=== PATIENT | male | born 1955 | race Caucasian/White ===

== ENCOUNTER 2023-05-03 14:20 | Inpatient (IN) | payer MEDICARE ==
[2023-05-03 15:43] LABS: #Eosinphils 0.2 10x3/uL (0.0-0.5); #Monocytes 1.6 10x3/uL (0.0-1.1); %Basophils 0.4 % (0.0-2.0); %Eosinophils 2.2 % (0.0-6.0); %Lymphocytes 9.8 % (18.0-47.0); %Monocytes 15.9 % (0.0-10.0); %Neutrophils 71.4 % (40.0-75.0); Hematocrit 46.5 % (38.8-50.0); Hemoglobin 15.9 g/dL (13.5-17.5); Mean Corpuscular HGB CONC 34.2 g/dL (32.0-36.0); Mean Corpuscular Hemoglobin 33.2 pg (27.0-33.0); Mean Corpuscular Volume 97.1 fl (81.2-95.1); Mean Platelet Volume 9.6 fl (7.4-10.4); Platelet Count 314 10x3/uL (150-450); RBC Distribution Width 13.9 % (11.5-14.5); Red Blood Cell (RBC) Count 4.79 10x6/uL (4.32-5.72); White Blood Cell (WBC) Count 9.9 10x3/uL (3.5-10.5)
[2023-05-03 15:57] LABS: ALT (SGPT) 13 U/L (8-55); AST (SGOT) 18 U/L (5-34); Albumin 3.8 g/dL (3.4-4.8); Alkaline Phosphatase 75 U/L (40-110); Anion Gap 16 mmol/L (10-20); BUN (Urea Nitrogen) 28 mg/dL (8.4-25.7); Bilirubin, Total 1.5 mg/dL (0.2-1.2); Calc. Creatinine Clearance 0 mL/min (70-130); Calcium 9.3 mg/dL (7.8-10.44); Carbon Dioxide 22 mmol/L (23-31); Chloride 104 mmol/L (98-107); Estimated GFR 45; Globulin 3.4 g/dL (2.4-3.5); Glucose 124 mg/dL (80-115); Potassium 4.5 mmol/L (3.5-5.1); Protein, Total 7.2 g/dL (5.8-8.1); Sodium 137 mmol/L (136-145)
[2023-05-03 16:00] LABS: Troponin I 0.011 ng/mL (< 0.028)
[2023-05-03] MEDS ORDERED: cefTRIAXone (ROCEPHIN) 2 GM VIAL ONE (17:16)
[2023-05-03 18:38] LABS: Bilirubin Neg (Negative); Blood, Urine 10 (Negative); Clarity Clear (Clear); Glucose, Urine (Dipstick) Normal (Negative); Ketone, Urine Negative (Negative); Leukocyte 25 (Negative); Nitrite Negative (Negative); Protein, Urine (Dipstick) 30 mg/dl (Neg-Trace)
[2023-05-03] MEDS ORDERED: Sodium Chloride 0.9% 1,000 ML IV SCH (18:45)
[2023-05-03 18:47] LABS: Bacteria/HPF 1+ HPF (None Seen); CAUTI Indications for Culture Pelvic or flank pain; Mucous/LPF 1+ LPF (<2+); RBC/HPF 0-3 HPF (0-3); Squamous Epithelial 0-3 HPF (0-3); WBC/HPF 0-3 HPF (0-3)
[2023-05-03 18:48] LABS: Urine Culture Reflex No No
[2023-05-03] MEDS ORDERED: Famotidine 20 MG TAB ONE (20:48)
[2023-05-03] MEDS: Famotidine 20 MG TAB PO SCH (20:50)
[2023-05-03 22:48] VITALS: BMI 37.3
[2023-05-03] MEDS: Acetaminophen 325 MG TAB PO PRN (23:42)
[2023-05-04 06:02] LABS: ALT (SGPT) 11 U/L (8-55); AST (SGOT) 17 U/L (5-34); Albumin 3.2 g/dL (3.4-4.8); Alkaline Phosphatase 63 U/L (40-110); Anion Gap 12 mmol/L (10-20); BUN (Urea Nitrogen) 19 mg/dL (8.4-25.7); Bilirubin, Total 1.4 mg/dL (0.2-1.2); Calc. Creatinine Clearance 129 mL/min (70-130); Calcium 9.2 mg/dL (7.8-10.44); Carbon Dioxide 21 mmol/L (23-31); Chloride 108 mmol/L (98-107); Estimated GFR 85; Globulin 3.5 g/dL (2.4-3.5); Glucose 102 mg/dL (80-115); Potassium 4.1 mmol/L (3.5-5.1); Protein, Total 6.7 g/dL (5.8-8.1); Sodium 137 mmol/L (136-145)
[2023-05-04] MEDS: Famotidine 20 MG TAB PO SCH ×2 (10:00→21:21)
[2023-05-04] MEDS: Acetaminophen 325 MG TAB PO PRN ×2 (12:29→21:27)
[2023-05-04] MEDS ORDERED: VANCOMYCIN 2 GRAM/400 ML BAG 2 GM in Premix 1 BAG IVPB SCH (13:30)
[2023-05-04] MEDS: cefTRIAXone\\ROCEPHIN 2 GM in Sodium Chloride 0.9% 100 ML IVPB SCH (17:33)
[2023-05-05] MEDS: Vancomycin 1.5 GRAM/300 ML BAG 1.5 GM in Premix 1 BAG IVPB SCH ×2 (02:06→14:00)
[2023-05-05] MEDS: Acetaminophen 325 MG TAB PO PRN ×2 (02:07→20:37)
[2023-05-05 06:13] LABS: #Basophils 0.1 10x3/uL (0.0-0.2); #Eosinphils 0.2 10x3/uL (0.0-0.5); #Monocytes 2.4 10x3/uL (0.0-1.1); #Neutrophils 9.3 10x3/uL (1.5-8.4); %Basophils 0.6 % (0.0-2.0); %Eosinophils 1.4 % (0.0-6.0); %Lymphocytes 10.8 % (18.0-47.0); %Monocytes 17.7 % (0.0-10.0); %Neutrophils 69.1 % (40.0-75.0); Hematocrit 41.2 % (38.8-50.0); Hemoglobin 14.4 g/dL (13.5-17.5); Mean Corpuscular Volume 94.5 fl (81.2-95.1); Platelet Count 307 10x3/uL (150-450); RBC Distribution Width 13.5 % (11.5-14.5); Red Blood Cell (RBC) Count 4.36 10x6/uL (4.32-5.72); White Blood Cell (WBC) Count 13.5 10x3/uL (3.5-10.5)
[2023-05-05 06:23] LABS: Anion Gap 14 mmol/L (10-20); BUN (Urea Nitrogen) 14 mg/dL (8.4-25.7); Calc. Creatinine Clearance 141 mL/min (70-130); Calcium 9.1 mg/dL (7.8-10.44); Carbon Dioxide 19 mmol/L (23-31); Chloride 106 mmol/L (98-107); Estimated GFR 94; Glucose 107 mg/dL (80-115); Sodium 135 mmol/L (136-145)
[2023-05-05] MEDS: Famotidine 20 MG TAB PO SCH ×2 (08:56→20:21)
[2023-05-05] MEDS: Colchicine 0.6 MG TAB PO SCH ×2 (08:56→20:22)
[2023-05-05] MEDS: methylPREDNISolone Sod Succ 40 MG VIAL IVP SCH ×2 (14:00→21:03)
[2023-05-05] MEDS: cefTRIAXone\\ROCEPHIN 2 GM in Sodium Chloride 0.9% 100 ML IVPB SCH (16:46)
[2023-05-05 23:40] LABS: Vancomycin, Trough 16.8 ug/mL
[2023-05-06] MEDS: Vancomycin 1.5 GRAM/300 ML BAG 1.5 GM in Premix 1 BAG IVPB SCH (00:37)
[2023-05-06 06:12] LABS: #Eosinphils 0.1 10x3/uL (0.0-0.5); #Monocytes 0.9 10x3/uL (0.0-1.1); #Neutrophils 13.5 10x3/uL (1.5-8.4); %Basophils 0.2 % (0.0-2.0); %Eosinophils 0.6 % (0.0-6.0); %Lymphocytes 4.6 % (18.0-47.0); %Monocytes 6.1 % (0.0-10.0); %Neutrophils 87.7 % (40.0-75.0); Hemoglobin 14.3 g/dL (13.5-17.5); Mean Corpuscular Hemoglobin 31.8 pg (27.0-33.0); Mean Corpuscular Volume 93.5 fl (81.2-95.1); Mean Platelet Volume 9.8 fl (7.4-10.4); Platelet Count 357 10x3/uL (150-450); RBC Distribution Width 13.7 % (11.5-14.5); Red Blood Cell (RBC) Count 4.49 10x6/uL (4.32-5.72); White Blood Cell (WBC) Count 15.4 10x3/uL (3.5-10.5)
[2023-05-06] MEDS: methylPREDNISolone Sod Succ 40 MG VIAL IVP SCH ×3 (06:14→21:25)
[2023-05-06 06:20] LABS: Anion Gap 14 mmol/L (10-20); BUN (Urea Nitrogen) 17 mg/dL (8.4-25.7); Calc. Creatinine Clearance 152 mL/min (70-130); Calcium 9.6 mg/dL (7.8-10.44); Carbon Dioxide 20 mmol/L (23-31); Chloride 105 mmol/L (98-107); Estimated GFR 96; Glucose 168 mg/dL (80-115); Potassium 4.3 mmol/L (3.5-5.1); Sodium 135 mmol/L (136-145)
[2023-05-06] MEDS: Colchicine 0.6 MG TAB PO SCH ×2 (08:54→21:41)
[2023-05-06] MEDS: Famotidine 20 MG TAB PO SCH ×2 (08:55→21:25)
[2023-05-06] MEDS: cefTRIAXone\\ROCEPHIN 2 GM in Sodium Chloride 0.9% 100 ML IVPB SCH (17:34)
[2023-05-06] MEDS ORDERED: Vancomycin 1.5 GRAM/300 ML BAG 1.5 GM in Premix 1 BAG IVPB SCH (20:00)
[2023-05-07] MEDS: methylPREDNISolone Sod Succ 40 MG VIAL IVP SCH (05:36)
[2023-05-07 05:51] LABS: #Basophils 0.1 10x3/uL (0.0-0.2); #Monocytes 1.2 10x3/uL (0.0-1.1); %Basophils 0.3 % (0.0-2.0); %Eosinophils 0.2 % (0.0-6.0); %Lymphocytes 3.6 % (18.0-47.0); %Monocytes 5.8 % (0.0-10.0); %Neutrophils 88.9 % (40.0-75.0); Hematocrit 44.6 % (38.8-50.0); Hemoglobin 15.1 g/dL (13.5-17.5); Mean Corpuscular HGB CONC 33.9 g/dL (32.0-36.0); Mean Corpuscular Hemoglobin 31.6 pg (27.0-33.0); Mean Corpuscular Volume 93.3 fl (81.2-95.1); Mean Platelet Volume 9.6 fl (7.4-10.4); Platelet Count 432 10x3/uL (150-450); RBC Distribution Width 13.7 % (11.5-14.5); Red Blood Cell (RBC) Count 4.78 10x6/uL (4.32-5.72); White Blood Cell (WBC) Count 21.3 10x3/uL (3.5-10.5)
[2023-05-07 05:58] LABS: Anion Gap 12 mmol/L (10-20); BUN (Urea Nitrogen) 24 mg/dL (8.4-25.7); Calc. Creatinine Clearance 154 mL/min (70-130); Calcium 9.7 mg/dL (7.8-10.44); Carbon Dioxide 23 mmol/L (23-31); Chloride 106 mmol/L (98-107); Estimated GFR 96; Glucose 156 mg/dL (80-115); Potassium 4.4 mmol/L (3.5-5.1); Sodium 137 mmol/L (136-145)
[2023-05-07] MEDS: Colchicine 0.6 MG TAB PO SCH ×2 (09:41→20:08)
[2023-05-07] MEDS: Famotidine 20 MG TAB PO SCH ×2 (09:41→20:08)
[2023-05-07] MEDS: cefTRIAXone\\ROCEPHIN 2 GM in Sodium Chloride 0.9% 100 ML IVPB SCH (17:50)
[2023-05-07] MEDS: Acetaminophen 325 MG TAB PO PRN (20:08)
[2023-05-08 06:21] LABS: Anion Gap 15 mmol/L (10-20); BUN (Urea Nitrogen) 27 mg/dL (8.4-25.7); Calc. Creatinine Clearance 136 mL/min (70-130); Calcium 9.4 mg/dL (7.8-10.44); Carbon Dioxide 25 mmol/L (23-31); Chloride 107 mmol/L (98-107); Estimated GFR 90; Glucose 127 mg/dL (80-115); Potassium 4.9 mmol/L (3.5-5.1); Sodium 142 mmol/L (136-145)
[2023-05-08 06:23] LABS: #Monocytes 1.2 10x3/uL (0.0-1.1); #Neutrophils 12.6 10x3/uL (1.5-8.4); %Basophils 0.2 % (0.0-2.0); %Lymphocytes 8.1 % (18.0-47.0); %Monocytes 7.9 % (0.0-10.0); %Neutrophils 82.9 % (40.0-75.0); Hematocrit 46.4 % (38.8-50.0); Hemoglobin 15.4 g/dL (13.5-17.5); Mean Corpuscular HGB CONC 33.2 g/dL (32.0-36.0); Mean Corpuscular Hemoglobin 31.9 pg (27.0-33.0); Mean Corpuscular Volume 96.1 fl (81.2-95.1); Mean Platelet Volume 9.7 fl (7.4-10.4); Platelet Count 469 10x3/uL (150-450); Red Blood Cell (RBC) Count 4.83 10x6/uL (4.32-5.72); White Blood Cell (WBC) Count 15.1 10x3/uL (3.5-10.5)
[2023-05-08] MEDS ORDERED: Amlodipine 10 MG TAB PO SCH (09:00)
[2023-05-08] MEDS: Famotidine 20 MG TAB PO SCH (09:02)
[2023-05-08] MEDS: Colchicine 0.6 MG TAB PO SCH (09:02)
[2023-05-08 13:27] VITALS: BP 181/92; TEMP 97.8
[2023-05-08] MEDS ORDERED: Atorvastatin Calcium 40 MG TAB PO SCH (21:00)
== END 2023-05-08 14:40 | disposition home or self-care (01) | DRG 872 ==
LOC: CSHERS 14:20 → CSHERHOLD 18:23 → CSHTELE 22:43 → CSHIMCU 22:49 → CSHTELE 23:15 → OBSVTOIN 05-05 08:44
PROVIDERS: ADMIT Internal Medicine; ATTEND Internal Medicine
DX: A41.9 Sepsis, unspecified organism (principal); N17.9 Acute kidney failure, unspecified; L03.115 Cellulitis of right lower limb; I69.354 Hemiplegia and hemiparesis following cerebral infarction affecting left non-dominant side; M10.9 Gout, unspecified; I10 Essential (primary) hypertension; E78.5 Hyperlipidemia, unspecified; G47.33 Obstructive sleep apnea (adult) (pediatric); F10.90 Alcohol use, unspecified, uncomplicated; Z96.651 Presence of right artificial knee joint; I25.2 Old myocardial infarction; Z95.1 Presence of aortocoronary bypass graft; Z79.899 Other long term (current) drug therapy; Z79.82 Long term (current) use of aspirin; Z98.890 Other specified postprocedural states
CPT/HCPCS: 36415; 70450; 71045; 80048; 80053; 80202; 81001; 83880; 84484; 85025; 87040; 87086; 93005; 94760; 94762; 96365; 96375; 96376; G0378; J0696; J2920; J3370; J3490

== ENCOUNTER 2024-03-15 13:49 | Inpatient (IN) | payer MEDICARE, OTHER ==
[2024-03-15 15:18] LABS: #Basophils 0.04 10x3/uL (0.0-0.2); #Eosinophils 0.01 10x3/uL (0.0-0.5); #Monocytes 1.93 10x3/uL (0.0-1.1); #Neutrophils 12.35 10x3/uL (1.5-8.4); %Basophils 0.3 % (0.0-2.0); %Eosinophils 0.1 % (0.0-6.0); %Monocytes 12.5 % (0.0-10.0); %Neutrophils 79.7 % (40.0-75.0); ALT (SGPT) 23 U/L (8-55); AST (SGOT) 26 U/L (5-34); Albumin 2.5 g/dL (3.4-4.8); Alkaline Phosphatase 82 U/L (40-110); Anion Gap 17 mmol/L (10-20); BUN (Urea Nitrogen) 11 mg/dL (8.4-25.7); Bilirubin, Total 1.3 mg/dL (0.2-1.2); Calc. Creatinine Clearance 0 mL/min (70-130); Carbon Dioxide 17 mmol/L (23-31); Chloride 103 mmol/L (98-107); Estimated GFR 97; Globulin 5.3 g/dL (2.4-3.5); Glucose 130 mg/dL (80-115); Hematocrit 42.8 % (38.8-50.0); Hemoglobin 14.9 g/dL (13.5-17.5); Mean Corpuscular HGB CONC 34.8 g/dL (32.0-36.0); Mean Corpuscular Hemoglobin 33.1 pg (27.0-33.0); Mean Corpuscular Volume 95.1 fL (81.2-95.1); Mean Platelet Volume 10.2 fL (7.4-10.4); Platelet Count 364 10x3/uL (150-450); Potassium 4.4 mmol/L (3.5-5.1); Protein, Total 7.8 g/dL (5.8-8.1); RBC Distribution Width 16.4 % (11.5-14.5); Sodium 133 mmol/L (136-145); Troponin I 0.015 ng/mL (< 0.028); White Blood Cell (WBC) Count 15.5 10x3/uL (3.5-10.5)
[2024-03-15 15:27] LABS: Acetaminophen Less than 10 mcg/mL (Less than 10); Alcohol Less than 10.0 mg/dL (Less than 10); Lipase 17 U/L (8-78); Salicylate Less than 8.0 mg/dL (Less than 8.0)
[2024-03-15] MEDS ORDERED: cefTRIAXone (ROCEPHIN) 2 GM VIAL ONE (15:34)
[2024-03-15 16:51] LABS: Bilirubin Neg (Negative); Blood, Urine 25 (Negative); Glucose, Urine (Dipstick) Normal (Negative); Ketone, Urine Negative (Negative); Leukocyte 25 (Negative); Nitrite Negative (Negative); Protein, Urine (Dipstick) 30 mg/dl (Neg-Trace)
[2024-03-15 16:53] LABS: Clarity Hazy (Clear)
[2024-03-15 17:01] LABS: Amphetamine Not Detected (NotDetected); Barbiturates Screen Not Detected (NotDetected); Benzodiazepine Screen Detected (NotDetected); Cocaine Metabolite Screen Detected (NotDetected); Methadone Not Detected (NotDetected); Methamphetamine Not Detected (NotDetected); Opiate Screen Detected (NotDetected); Oxycodone Screen Not Detected (NotDetected); Phencyclidine (PCP) Not Detected (NotDetected); THC/Cannabinoid Screen Detected (NotDetected); Tricyclic Screen Not Detected (NotDetected)
[2024-03-15 17:19] LABS: Bacteria/HPF 2+ HPF (None Seen); CAUTI Indications for Culture Alt mental st,lethar; RBC/HPF 0-3 HPF (0-3); Squamous Epithelial 0-3 HPF (0-3); WBC/HPF 0-3 HPF (0-3)
[2024-03-15 17:20] LABS: Mucous/LPF Rare LPF (<2+); Urine Culture Reflex No No
[2024-03-15] MEDS: Sodium Chloride 0.9% 1,000 ML IV SCH (21:00)
[2024-03-15] MEDS ORDERED: Ondansetron PF 4 MG/2 ML Vial IVP PRN (21:14)
[2024-03-15] MEDS: cefTRIAXone\\ROCEPHIN 1 GM in Sodium Chloride 0.9% 100 ML IVPB SCH (21:30)
[2024-03-15 21:44] LABS: #Basophils 0.02 10x3/uL (0.0-0.2); #Eosinophils 0.01 10x3/uL (0.0-0.5); #Monocytes 1.85 10x3/uL (0.0-1.1); #Neutrophils 10.41 10x3/uL (1.5-8.4); %Basophils 0.1 % (0.0-2.0); %Eosinophils 0.1 % (0.0-6.0); %Lymphocytes 9.8 % (18.0-47.0); %Monocytes 13.5 % (0.0-10.0); %Neutrophils 76.1 % (40.0-75.0); Hematocrit 40.1 % (38.8-50.0); Hemoglobin 13.2 g/dL (13.5-17.5); Mean Corpuscular HGB CONC 32.9 g/dL (32.0-36.0); Mean Corpuscular Hemoglobin 31.9 pg (27.0-33.0); Mean Corpuscular Volume 96.9 fL (81.2-95.1); Platelet Count 310 10x3/uL (150-450); RBC Distribution Width 16.5 % (11.5-14.5); Red Blood Cell (RBC) Count 4.14 10x6/uL (4.32-5.72); White Blood Cell (WBC) Count 13.7 10x3/uL (3.5-10.5)
[2024-03-15 21:54] LABS: Anion Gap 15 mmol/L (10-20); BUN (Urea Nitrogen) 11 mg/dL (8.4-25.7); Calc. Creatinine Clearance 0 mL/min (70-130); Calcium 9.4 mg/dL (7.8-10.44); Carbon Dioxide 22 mmol/L (23-31); Chloride 104 mmol/L (98-107); Estimated GFR 96; Glucose 113 mg/dL (80-115); Potassium 4.3 mmol/L (3.5-5.1); Sodium 137 mmol/L (136-145)
[2024-03-16 00:10] VITALS: BMI 36.9
[2024-03-16] MEDS: FLU (Fluad Triv) TS24-25 (65UP)/MF59C/PF 45 MCG/0.5 ML Syringe IM ONE (08:37)
[2024-03-16] MEDS: Famotidine/PF 20 mg/2ml Vial SLOW IVP SCH (08:39)
[2024-03-16] MEDS: Enoxaparin 40 MG (0.4 mL) SYRINGE SC SCH (08:39)
[2024-03-16] MEDS: Losartan 50 MG TAB PO SCH (12:44)
[2024-03-16] MEDS: predniSONE 20 MG TAB PO SCH (12:50)
[2024-03-16] MEDS: Colchicine 0.6 MG TAB PO SCH ×3 (12:50→19:31)
[2024-03-16] MEDS: NIFEdipine XL 30 MG ER.TAB PO SCH (12:50)
[2024-03-16] MEDS ORDERED: Ibuprofen 800 MG TAB PO PRN (23:58)
[2024-03-17] MEDS: Acetaminophen 500 MG TAB PO PRN (00:13)
[2024-03-17 03:48] LABS: #Basophils 0.02 10x3/uL (0.0-0.2); #Eosinophils 0.02 10x3/uL (0.0-0.5); #Monocytes 1.08 10x3/uL (0.0-1.1); #Neutrophils 13.31 10x3/uL (1.5-8.4); %Basophils 0.1 % (0.0-2.0); %Eosinophils 0.1 % (0.0-6.0); %Lymphocytes 5.3 % (18.0-47.0); %Neutrophils 86.8 % (40.0-75.0); Hematocrit 37.2 % (38.8-50.0); Hemoglobin 12.1 g/dL (13.5-17.5); Mean Corpuscular HGB CONC 32.5 g/dL (32.0-36.0); Mean Corpuscular Hemoglobin 31.3 pg (27.0-33.0); Mean Corpuscular Volume 96.1 fL (81.2-95.1); Mean Platelet Volume 11.4 fL (7.4-10.4); Platelet Count 264 10x3/uL (150-450); RBC Distribution Width 16.5 % (11.5-14.5); Red Blood Cell (RBC) Count 3.87 10x6/uL (4.32-5.72); White Blood Cell (WBC) Count 15.4 10x3/uL (3.5-10.5)
[2024-03-17 04:02] LABS: Anion Gap 15 mmol/L (10-20); BUN (Urea Nitrogen) 14 mg/dL (8.4-25.7); Calc. Creatinine Clearance 167 mL/min (70-130); Calcium 9.3 mg/dL (7.8-10.44); Carbon Dioxide 18 mmol/L (23-31); Chloride 109 mmol/L (98-107); Estimated GFR 98; Glucose 154 mg/dL (80-115); Potassium 4.3 mmol/L (3.5-5.1); Sodium 138 mmol/L (136-145)
[2024-03-17] MEDS ORDERED: ROSUVASTATIN CALCIUM 5 MG PO SCH (09:00)
[2024-03-17] MEDS: Losartan 50 MG TAB PO SCH (09:49)
[2024-03-17] MEDS: NIFEdipine XL 30 MG ER.TAB PO SCH (09:49)
[2024-03-17] MEDS: predniSONE 20 MG TAB PO SCH (13:30)
[2024-03-17 13:45] LABS: Critical Call Chem Troponin I NUR.WB @1344
[2024-03-17] MEDS ORDERED: Heparin 10,000 UNITS/ 10 ML VIAL SLOW IVP SCH (15:00)
[2024-03-17] MEDS: Aspirin 325 mg Enteric Coated Tablet PO SCH (15:00)
[2024-03-17] MEDS ORDERED: Heparin 25,000 units/D5W 500 ML IVPB SCH (15:00)
[2024-03-17 15:22] VITALS: BP 125/75; TEMP 97.8
[2024-03-17 15:34] LABS: Hematocrit 33.2 % (38.8-50.0); Hemoglobin 10.9 g/dL (13.5-17.5); Platelet Count 294 10x3/uL (150-450)
[2024-03-18] MEDS ORDERED: predniSONE 20 MG TAB PO SCH (08:00)
[2024-03-18] MEDS ORDERED: Aspirin 81 mg Enteric Coated Tablet PO SCH (09:00)
== END 2024-03-17 16:05 | disposition swing bed (61) | DRG 553 ==
LOC: CSHERS 13:49 → CSHTELE 20:18 → OBSVTOIN 03-17 12:09
PROVIDERS: ADMIT Hospitalist; ATTEND Hospitalist
DX: M10.9 Gout, unspecified (principal); G93.41 Metabolic encephalopathy; I47.20 Ventricular tachycardia, unspecified; R65.10 Systemic inflammatory response syndrome (SIRS) of non-infectious origin without acute organ dysfunction; E78.5 Hyperlipidemia, unspecified; I25.10 Atherosclerotic heart disease of native coronary artery without angina pectoris; I10 Essential (primary) hypertension; F19.10 Other psychoactive substance abuse, uncomplicated; Z96.651 Presence of right artificial knee joint; F10.90 Alcohol use, unspecified, uncomplicated; Z95.1 Presence of aortocoronary bypass graft; Z86.73 Personal history of transient ischemic attack (TIA), and cerebral infarction without residual deficits; I25.2 Old myocardial infarction
CPT/HCPCS: 36415; 70450; 71045; 80048; 80053; 80306; 80307; 81001; 82140; 83605; 83690; 84443; 84484; 85025; 85730; 87040; 87077; 87149; 93005; 96361; 96365; 96366; 96372; 96375; 96376; G0378; J0696; J1650; J3490; J7030; J7512